=== PATIENT | male | born 1995 | race Two or more races ===

== ENCOUNTER 2017-05-02 02:54 | Emergency (ER) | payer SELFPAY ==
[2017-05-02 03:15] VITALS: RESP 20; TEMP 98.1; O2SAT 95
[2017-05-02] MEDS ORDERED: OLANZapine DISINTEGR 10 MG TAB PO ONE (03:26)
--- NOTE | 2017-05-02 04:59 | EDPHY ---
H & P Stated Complaint: LSC- bad trip Time Seen by Provider: 05/02/17 03:18 HPI/ROS: HPI The patient presents brought in by ambulance with agitation and confusion, presumed LSD intoxication. The patient does report that took LSD earlier in the day. He when out with a friend and his girlfriend found him on the doorstep , saying that he did not feel well. He was somewhat agitated. 911 was called. The patient had to receive Versed 5 mg IM in route. According to his girlfriend , he has used LSD before, however usually does not reaction this way. She says that he has not been making sense. He denies any injuries. REVIEW OF SYSTEMS Constitutional: No fever, no chills. Eyes: No discharge. ENT: No sore throat. Cardiovascular: No chest pain, no palpitations. Respiratory: No cough, no shortness of breath. Gastrointestinal: No abdominal pain, no vomiting. Genitourinary: No hematuria. Musculoskeletal: No back pain. Skin: No rashes. Neurological: No headache. PMHx: Healthy Soc Hx: LSD use FHx: PHYSICAL General Appearance: Alert, no distress Eyes: Pupils equal and round, 4-5 mm, no pallor or injection ENT, Mouth: Mucous membranes moist Respiratory: There are no retractions, lungs are clear to auscultation Cardiovascular: Tachycardic rate with regular rhythm Gastrointestinal: Abdomen is soft and non-tender, no masses, bowel sounds normal Neurological: A&O, moves all extremities Skin: Warm and dry, no rashes Musculoskeletal: Neck is supple non tender Extremities: symmetrical, full range of motion Psychiatric: Patient is oriented X 2, he is somewhat confused Source: Patient, EMS Exam Limitations: Intoxication - Medical/Surgical History Hx Asthma: No Hx Chronic Respiratory Disease: No Hx Diabetes: No Hx Cardiac Disease: No Hx Renal Disease: No Hx Cirrhosis: No Hx Alcoholism: No Hx HIV/AIDS: No Hx Splenectomy or Spleen Trauma: No Other PMH: unknown - Social History Smoking Status: Light smoker Constitutional: Initial Vital Signs Temperature (C) 36.7 C 05/02/17 03:09 Heart Rate 130 H 05/02/17 03:09 Respiratory Rate 20 05/02/17 03:09 Blood Pressure 160/94 H 05/02/17 03:09 O2 Sat (%) 95 05/02/17 03:09 O2 Delivery Mode Room Air Allergies/Adverse Reactions: No Known Allergies Allergy (Unverified 05/02/17 03:08) Home Medications: Medication Instructions Recorded NK [No Known Home Meds] 05/02/17 Medical Decision Making Differential Diagnosis: This is a 21-year-old male who is brought in by ambulance with LSD intoxication. He was agitated in route and received Versed. He now is tachycardic, continues to have what appear to be delusions and hallucinations. There is no sign of injury. I plan to observe him. In the emergency department, the patient was observed for several hours. He became more lucid and was eventually apologetic for his behavior. He denies any SI or HI. He said he feels well enough to go home. He denies any current hallucinations. He will be discharged with his girlfriend who is sober. Differential diagnosis considered includes LSD intoxication, marijuana intoxication, alcohol intoxication. - Data Points Medications Given: Discontinued Medications Olanzapine (Zyprexa Zydis) 10 mg PO EDNOW ONE Stop: 05/02/17 03:27 Last Admin: 05/02/17 03:29 Dose: 10 mg Departure - Departure Disposition: Home, Routine, Self-Care Clinical Impression: LSD reaction Altered mental status Qualifiers: Altered mental status type: disorientation Qualified Code(s): R41.0 - Disorientation, unspecified Condition: Good Instructions: Polysubstance Abuse (ED) Additional Instructions: Please return to the emergency department if you are worse in any way. Referrals: Patient,NotPresent [Unknown] - As per Instructions
[2017-05-02 05:54] VITALS: BP 136/78; PULSE 89
== END 2017-05-02 05:52 | disposition home or self-care (01) ==
DX: R41.0 Disorientation, unspecified (principal); T40.8X1A Poisoning by lysergide [LSD], accidental (unintentional), initial encounter; F17.200 Nicotine dependence, unspecified, uncomplicated

== ENCOUNTER 2017-06-07 11:20 | Inpatient (IN) | payer SELFPAY ==
--- NOTE | 2017-06-07 11:37 | EDPHY ---
H & P Stated Complaint: SI Time Seen by Provider: 06/07/17 11:28 HPI/ROS: CHIEF COMPLAINT: Suicidal ideation, M1 HISTORY OF PRESENT ILLNESS: 21-year-old male arrives via police on an M1 hold after he allegedly called his girlfriend and made suicidal statements then hung up. Patient informs at this was a misunderstanding that he is feeling depressed but denies suicidal ideation. Notes that his grandfather recently and his friend with the committed suicide and he has been experiencing increased depression. REVIEW OF SYSTEMS: A ten point review of systems was performed and is negative with the exception of the items mentioned in the HPI PAST MEDICAL & SURGICAL HISTORY: Prior history of suicide attempt SOCIAL HISTORY: Denies acute alcohol or drug use. Prior history of LSD use PHYSICAL EXAM (Prior to examination, patient consented to physical exam, hands were washed and my usual and customary physical exam procedures followed) 1) GENERAL: Well-developed, well-nourished, alert and oriented. Depressed, flat affect 2) HEAD: Normocephalic, atraumatic 3) HEENT: Pupils equal, round, reactive to light bilaterally. Sclera anicteric. 4) NECK: Full range of motion, no meningeal signs. 5) LUNGS: Clear auscultation bilaterally, no wheezes, no rhonchi, no retractions. 6) HEART: Regular rate and rhythm, no murmur, no heave, no gallop. 7) ABDOMEN: No guarding, no rebound, no focal tenderness, negative McBurney's, negative Rossi's, negative Rovsing's, negative peritoneal sign, 8) MUSCULOSKELETAL: Moving all extremities, no focal areas of tenderness, no obvious trauma. No peripheral edema or discoloration. 9) BACK: No CVA tenderness, no midline vertebral tenderness, no fluctuance, no step-off, no obvious trauma, no visual or palpable abnormality. 10) SKIN: No rash, no petechiae. 11) Psychiatric: Patient is oriented X 3, calm, cooperative, depressed flat affect. DIFFERENTIAL DIAGNOSIS: In no particular include but limited to psychosis, margie, suicidal ideation, homicidal ideation - Personal History Current Tetanus/Diphtheria Vaccine: Unsure Current Tetanus Diphtheria and Acellular Pertussis (TDAP): Unsure - Medical/Surgical History Hx Asthma: No Hx Chronic Respiratory Disease: No Hx Diabetes: No Hx Cardiac Disease: No Hx Renal Disease: No Hx Cirrhosis: No Hx Alcoholism: No Hx HIV/AIDS: No Hx Splenectomy or Spleen Trauma: No Other PMH: suicide attempts, schizophrenia, depression - Social History Smoking Status: Light smoker Constitutional: Initial Vital Signs Temperature (C) 36.6 C 06/07/17 11:24 Heart Rate 97 06/07/17 11:24 Respiratory Rate 16 06/07/17 11:24 Blood Pressure 158/108 H 06/07/17 11:24 O2 Sat (%) 97 06/07/17 11:24 O2 Delivery Mode Room Air Allergies/Adverse Reactions: No Known Allergies Allergy (Unverified 06/07/17 11:24) Home Medications: Medication Instructions Recorded NK [No Known Home Meds] 05/02/17 Medical Decision Making ED Course/Re-evaluation: 11:36 a.m.: Old medical records reviewed. Patient has prior emergency department visit for acute LSD use. He is on an M1 hold. Care of patient under supervision of secondary supervising physician Dr Nino Aviles . 4:06 p.m. patient has been accepted to [address] Hyman accepting physician. EMTALA paperwork completed. - Data Points Laboratory Results: Laboratory Results 06/07/17 11:45 06/07/17 11:45 06/07/17 06/07/17 06/07/17 12:10 11:45 11:45 WBC 6.35 10^3/uL 10^3/uL (3.80-9.50) RBC 5.38 10^6/uL 10^6/uL (4.40-6.38) Hgb 17.1 g/dL g/dL (13.7-17.5) Hct 47.4 % % (40.0-51.0) MCV 88.1 fL fL (81.5-99.8) MCH 31.8 pg pg (27.9-34.1) MCHC 36.1 g/dL g/dL (32.4-36.7) RDW 12.7 % % (11.5-15.2) Plt Count 233 10^3/uL 10^3/uL (150-400) MPV 9.2 fL fL (8.7-11.7) Neut % (Auto) 57.6 % % (39.3-74.2) Lymph % (Auto) 33.9 % % (15.0-45.0) [place] % (Auto) 7.1 % % (4.5-13.0) Eos % (Auto) 0.3 % L % (0.6-7.6) Baso % (Auto) 0.8 % % (0.3-1.7) Nucleat RBC Rel Count 0.0 % % (0.0-0.2) Absolute Neuts (auto) 3.66 10^3/uL 10^3/uL (1.70-6.50) Absolute Lymphs (auto) 2.15 10^3/uL 10^3/uL (1.00-3.00) Absolute Monos (auto) 0.45 10^3/uL 10^3/uL (0.30-0.80) Absolute Eos (auto) 0.02 10^3/uL L 10^3/uL (0.03-0.40) Absolute Basos (auto) 0.05 10^3/uL 10^3/uL (0.02-0.10) Absolute Nucleated RBC 0.00 10^3/uL 10^3/uL (0-0.01) Immature Gran % 0.3 % % (0.0-1.1) Immature Gran # 0.02 10^3/uL 10^3/uL (0.00-0.10) Sodium 148 mEq/L H mEq/L (135-145) Potassium 4.1 mEq/L mEq/L (3.5-5.2) Chloride 107 mEq/L mEq/L (97-110) Carbon Dioxide 21 mEq/l L mEq/l (22-31) Anion Gap 20 mEq/L H mEq/L (8-16) BUN 9 mg/dL mg/dL (7-23) Creatinine 0.7 mg/dL mg/dL (0.7-1.3) Estimated GFR > 60 Glucose 91 mg/dL mg/dL (70-100) Calcium 10.1 mg/dL mg/dL (8.5-10.4) Salicylates < 1.0 mg/dL L mg/dL (2.0-20.0) Urine Opiates Screen NEGATIVE (NEGATIVE) Acetaminophen < 10 mcg/mL L mcg/mL (10-30) Urine Barbiturates NEGATIVE (NEGATIVE) Ur Phencyclidine Scrn NEGATIVE (NEGATIVE) Ur Amphetamine Screen NEGATIVE (NEGATIVE) U Benzodiazepines Scrn NEGATIVE (NEGATIVE) Urine Cocaine Screen NEGATIVE (NEGATIVE) U Marijuana (THC) Screen NON-NEGATIVE H (NEGATIVE) Ethyl Alcohol 58 mg/dL H mg/dL (0-10) Medications Given: Discontinued Medications Lorazepam (Ativan) 2 mg PO EDNOW ONE Stop: 06/07/17 15:41 Last Admin: 06/07/17 15:41 Dose: 2 mg Departure - Departure Disposition: [facility] IP Clinical Impression: Severe major depression, Suicidal ideation Condition: Fair
[2017-06-07 12:00] LABS: PLATELET COUNT 233 10^3/uL (150-400)
[2017-06-07] MEDS ORDERED: LORazepam 1 MG TAB ONE (15:39)
[2017-06-07] MEDS ORDERED: LORazepam 1 MG TAB PO ONE (15:40)
[2017-06-07] MEDS ORDERED: MAGNESIUM HYDROXIDE 30 ML UDCUP PO PRN (17:38)
[2017-06-07] MEDS ORDERED: ACETAMINOPHEN 325 MG TAB PO PRN (17:38)
[2017-06-07] MEDS ORDERED: MAG HYDROX/AL HYDROX/SIMETH 30 ML UDCUP PO PRN (17:38)
--- NOTE | 2017-06-08 14:12 | BCON ---
[f rep st] BEHAVIORAL HEALTH CONSULTATION INTERNAL MEDICINE CONSULTATION DATE OF CONSULTATION: 06/08/2017 REFERRING PHYSICIAN: Rock Hyman MD REASON FOR REFERRAL: Medical clearance for inpatient behavioral health stay. HISTORY OF PRESENT ILLNESS: This patient was brought to the emergency department yesterday by police after a phone conversation with his girlfriend in which he was threatening suicide. He was evaluated by the mental health team and admitted for further psychiatric care. Currently, he has no acute medical complaints. PAST MEDICAL HISTORY: He has a history of psychiatric diagnosis and hospitalization in his teens, and reports he was put on haloperidol and risperidone. PAST SURGICAL HISTORY: He denies any history of surgeries. MEDICATIONS: He was on no medications. SOCIAL HISTORY: He has been living with his girlfriend, who may be breaking up with him. 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 He is a smoker but reports that he is not addicted and can stop at any time. He had an emergency department visit a month ago while intoxicated on LSD. He uses alcohol as well as marijuana. FAMILY HISTORY: He reports his mother had breast cancer and bilateral mastectomy, and his father is prediabetic. REVIEW OF SYSTEMS: A 10-point review of systems was conducted and was negative. PHYSICAL EXAM: VITAL SIGNS: Blood pressure is 126/95, heart rate is 84, respiratory rate 16, oxygen saturation 99% on room air, temperature is 36.8 degrees centigrade. His weight is 79.4 kg for a body mass index of 26.6. GENERAL: A well-nourished, well-developed man, cooperative, and in no acute distress. HEENT: Extraocular movements are intact. Pupils are equal, round, reactive to light. Mucous membranes are moist. Dentition is in good condition. He has an uncrowded airway, Mallampati class 1. NECK: Supple. HEART: There is a regular rate and rhythm with no murmurs, rubs, or gallops. LUNGS: Clear to auscultation bilaterally. ABDOMEN: Soft, nontender, nondistended with normoactive bowel sounds. EXTREMITIES: There is no cyanosis , clubbing, or edema. NEUROLOGIC: He is alert and oriented x3. Cranial nerves 2-12 are grossly intact. There is no focal weakness. Sensation is intact to light touch. Gait is within normal limits. LABORATORY STUDIES: From the emergency department, CBC was within normal limits. Serum chemistry revealed a slightly elevated sodium at 148, a slightly low carbon dioxide at 21, and an anion gap of 20. Otherwise, renal function and electrolytes were within normal limits. Serum toxicology screen was negative for salicylates or acetaminophen. He was positive for ethyl alcohol at 58 mg/dL. Urine toxicology screen was non-negative for marijuana and otherwise negative for substances of abuse. ASSESSMENT/RECOMMENDATIONS: 1. Mental health issues, pending further evaluation and management per Psychiatry and the mental health team. 2. Tobacco dependence syndrome. Advised smoking cessation. 3. Polysubstance abuse. He might benefit from specific substance abuse counseling. 4. Possible metabolic acidosis with an elevated anion gap. This may be due to ethanol metabolites as he had a positive serum toxicology screen for ethanol. He does not appear to be metabolically ill and assuming he has normal oral hydration and nutrition, there is no indication for any further testing. I see no medical contraindications to this patient's stay on the inpatient behavioral health unit or to any psychiatric medications or procedures. Thank you very much for including me in the care of this patient and please do not hesitate to contact me or the hospitalist service should there be need for further medical evaluation. /[id number]/MODL MTDD
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
[2017-06-08] MEDS: LORazepam 0.5 MG TAB PO PRN (23:07)
[2017-06-09] MEDS: LORazepam 0.5 MG TAB PO PRN ×2 (08:55→14:41)
[2017-06-09] MEDS ORDERED: ESCITALOPRAM OXALATE 10 MG TAB PO SCH (09:00)
[2017-06-09 16:03] VITALS: BP 136/97; PULSE 97; RESP 97; TEMP 97.7; O2SAT 98
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
== END 2017-06-09 16:11 | disposition home or self-care (01) | DRG 881 ==
LOC: EEVIPCON 11:20 → BBEH 17:05
PROVIDERS: ADMIT Psychiatry & Neurology Psychiatry; ATTEND Psychiatry & Neurology Psychiatry
DX: F32.9 Major depressive disorder, single episode, unspecified (principal); F20.9 Schizophrenia, unspecified; F17.210 Nicotine dependence, cigarettes, uncomplicated; F12.10 Cannabis abuse, uncomplicated; Z63.0 Problems in relationship with spouse or partner
CPT/HCPCS: 80305; G0480